=== PATIENT | male | born 1960 | race Caucasian/White ===

== ENCOUNTER 2022-01-13 12:10 | Emergency (ER) | payer SELFPAY ==
[2022-01-13 12:19] VITALS: BP 155/86; PULSE 80; RESP 16; TEMP 36.4; O2SAT 99
--- NOTE | 2022-01-13 13:14 | W.ED.GENAD ---
Discharge Plan Disposition Patient Disposition: HOME Condition: Stable Discharge Details Chief Complaint: Abd Prob Clinical Impression: Abdominal pain Primary Care Provider: None,None ED Provider: Shabbir James Home Meds and New Rx's Prescriptions: No Action No Known Home Meds 0RF Discharge Instructions Instructions: Abdominal Pain (ED) Additional Instructions: Laboratory values and CT imaging do not reveal any obvious emergent process. Please watch for new or worsening symptoms and return to the ER for any concerns. Gentle stretching as tolerated. [id number] Tylenol and/or Motrin as directed for discomfort. Cool and/or warm compresses every 2 hours for 20 minutes Medical Decision Making 61-year-old gentleman presents to the ER for right lower quadrant pain. He reports the pain began the day after falling backward onto his back. He did not strike his abdomen. It is difficult to correlate his abdominal pain with the fall. He then states later getting out of the truck he felt like he pulled something. While there does appear to be a musculoskeletal component, he does present with right lower quadrant pain. He is personally concerned about appendicitis. I also question if there may be abdominal wall hernia. I feel as though obtaining laboratory values, CT imaging is reasonable. Laboratory values are unremarkable for any obvious emergent process. CT imaging of the abdomen and pelvis is negative as well. Discussed benign work-up with patient. He is relieved. He has no additional questions or concerns and is comfortable discharge. Discussed the importance of gentle stretching, [id number] Tylenol and/or Motrin, and warm and/or cool compresses every 2 hours for 20 minutes. Standard discharge and return precautions were provided. This documentation was generated using [employer] dictation system, please disregard any oddities of phrase or misspellings. Medical Records Medical records reviewed: Yes I reviewed the patient's medical records. Imaging Data Radiologic Study: Attestation: I personally reviewed and interpreted this imaging study as follows: Imaging: CT Scan Radiologist's impression: Exam(s) CT ABDOMEN PELVIS W EXAM: CT ABDOMEN PELVIS W CLINICAL HISTORY: RLQ pain TECHNIQUE: COMPARISON: No exams were available for comparison FINDINGS: CT examination of the abdomen and pelvis was performed with bolus infusion of 100 cc of Omnipaque 350. Images obtained through the lung bases are unremarkable. The liver appears normal with no evidence of a focal mass. 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 No evidence of acute trauma. Incidental splenic calcifications noted consistent with healed granulomatous disease... Gallbladder and bile ducts are unremarkable. Pancreas is unremarkable in appearance. Adrenals appear normal bilaterally. Kidneys appear normal with no evidence of renal mass, hydronephrosis, or nephrolithiasis. The urinary bladder has a thickened wall which may indicate chronic bladder outlet obstruction versus cystitis, please correlate clinically. There is no evidence of abdominal or pelvic adenopathy. Abdominal aorta is of normal diameter and no abnormality is seen involving major visceral branches.. Appendix is normal. No evidence diverticulitis or bowel obstruction. Small bilateral fat containing inguinal hernias and small fat containing umbilical hernia noted.. Impression: No evidence of acute intra-abdominal process.. Lab Data Lab results reviewed: Yes I reviewed the patient's lab results. Labs: Laboratory Tests Range/Units 01/13/22 01/13/22 01/13/22 13:50 13:50 14:06 WBC (4.4-10.8) 10^3/uL 8.97 RBC (4.36-5.78) 10^6/uL 4.40 Hgb (13.5-17.5) g/dL 14.1 Hct (40.0-50.0) % 41.7 MCV (80-95) fL 94.8 MCH (27.0-33.0) pg 32.0 MCHC (32.0-36.0) % 33.8 RDW (11.8-14.1) % 12.9 Plt Count (130-400) 10^3/uL 305 MPV (8.0-11.0) fL 8.9 Immature Gran % 0.1 Neutrophils % 66.9 Lymphocytes % 20.5 Monocytes % 8.5 Eosinophils % 3.2 Basophils % 0.8 Nucleated RBC % % 0 Absolute Neutrophils (1.2-6.7) 10^3/uL 6.00 Absolute Lymphocytes (1.2-3.4) 10^3/uL 1.84 Absolute Monocytes (0.1-0.8) 10^3/uL 0.76 Absolute Eosinophils (0.0-0.7) 10^3/uL 0.29 Absolute Basophils (0.0-0.2) 10^3/uL 0.07 Sodium (136-145) mmol/L 138 Potassium (3.5-5.1) mmol/L 4.6 Chloride (98-107) mmol/L 103 Carbon Dioxide (21.0-32.0) mmol/L 25.5 Anion Gap (3-11) mmol/L 9.5 BUN (7-18) mg/dL 15 Creatinine (0.70-1.30) mg/dL 0.9 Estimated GFR/1.73 m2 (mL/min/1.73m2) >= 60.00 Glucose (74-106) mg/dL 96 Calcium (8.5-10.1) mg/dL 9.1 Total Bilirubin (0.2-1.0) mg/dL 0.6 AST (15-37) U/L 34 ALT (16-63) U/L 38 Alkaline Phosphatase (46-116) U/L 89 Total Protein (6.4-8.2) g/dL 7.8 Albumin (3.4-5.0) g/dL 4.1 Lipase (73-393) U/L 76 Urine Color (Yellow) Yellow Urine Clarity (Clear) Clear Urine pH (5-8) 6.5 Ur Specific New Site (1.005-1.025) >= 1.030 H Urine Protein (Negative) mg/dL Negative Urine Ketones (Negative) mg/dL Negative Urine Blood (Negative) Negative Urine Nitrite (Negative) Negative Urine Bilirubin (Negative) Negative Urine Urobilinogen (Up TO 0.2) EU/dL 0.2 Ur Leukocyte Esterase (Negative) Negative Urine Glucose (Negative) mg/dL Negative HPI General Mode of arrival: ambulatory. Date/Time Provider Initiated Documentation: 01/13/22 12:18. Limitations to Documentation: no limitations. Information obtained by: patient. HPI Narrative: This is a 61-year-old gentleman, denies significant past medical history, presenting to the ER for right lower quadrant pain. Patient states that about a week ago he fell backwards landing on his back but did not sustain any injuries. He did strike his head but denies any LOC or headache. He states the following day he noticed some pain in his right lower quadrant. Denies any fever, nausea, vomiting, diarrhea, constipation, dysuria or hematuria. The pain does not radiate to his back or down into his groin. He states that he felt like things were somewhat improving and then yesterday got out of his friend's truck awkwardly and felt like he could have pulled something. He is also concerned because this is the area of his appendix. He has not taken any [id number] medication for his symptoms. At rest he reports his pain is mild to moderate but with certain types of movement he wears ports his pain is moderate to severe. Related Data Home Medications Medication Instructions Recorded Confirmed Unknown [No Known Home Meds] 01/20/14 01/13/22 Allergies Allergy/AdvReac Type Severity Reaction Status Date / Time Penicillins Allergy Intermediate Swelling/Ed Unverified 01/13/22 12:26 sera General Stated Complaint: Abd Prob ORA: 3 Review of Systems Constitutional Constitutional: Denies fever(s) Cardiovascular Cardiovascular: Denies chest pain and Denies dyspnea Respiratory Respiratory: Denies cough and Denies dyspnea Gastrointestinal Gastrointestinal: Reports abdominal pain, Denies constipation, Denies diarrhea, Denies nausea and Denies vomiting Genitourinary Genitourinary: Denies hematuria, Denies genital pain, Denies dysuria and Denies testicular pain Musculoskeletal Musculoskeletal: Denies back pain Integumentary/Breasts Skin/Breast: Denies rash PFSH All Active Problems (Updated 01/13/22 @ 15:20 by JASON Casper) Abdominal pain (Acute) Social History Smoking/Tobacco Use Status: Former Tobacco Use Quit Date: 01/13/22 Smoking risk assessment performed?: Yes Alcohol Intake: current Alcohol Intake frequency: a few times a month Drug use: Never Substance use type: marijuana Exam Const General: cooperative, healthy appearing, comfortable and no acute distress Orientation: alert and awake [facility] Head: normal to inspection, normocephalic and atraumatic Mouth: moist mucous membranes Eyes General: appearance normal, both eyes and all related structures Conjunctivae: conjunctivae normal Neck Neck: normal visual inspection, trachea midline and supple Resp Effort & Inspection: normal respiratory effort and able to speak in complete sentences Auscultation: clear to auscultation bilaterally Cardio Rate: regular rate Rhythm: regular rhythm GI Inspection: normal to inspection Palpation: soft, not firm, no guarding, no pulsatile masses, tender in the RLQ; Negative for not at McBurney's point, Johnson's sign negative, obturator sign negative, psoas sign negative, with no rebound tenderness and Rovsing's sign negative and No Carnett's sign positive Auscultation: normal bowel sounds Back/Spine/Pelvis Back: No back tenderness Skin General skin exam: no rashes or lesions noted Neuro General: patient alert, patient awake, moves all extremities and no focal motor deficits Cognition: normal cognition Speech: speech normal Gait: normal gait Sensory Exam: no sensory deficits noted Psych Appearance: grossly normal Mental Status: mental status grossly normal Course Vital Signs Vital signs: Vital Signs Temperature 36.4 C L 01/13/22 12:19 Pulse 80 01/13/22 12:19 Respiratory Rate 16 01/13/22 12:19 Blood Pressure 155/86 H 01/13/22 12:19 Pulse Oximetry 99 01/13/22 12:19 Temperature 36.4 C L 01/13/22 12:19 Temperature Source Skin 01/13/22 12:19 Pulse 80 01/13/22 12:19 Respiratory Rate 16 01/13/22 12:19 Respiratory Effort 01/13/22 12:25 Blood Pressure 155/86 H 01/13/22 12:19 Blood Pressure Position Sitting 01/13/22 12:19 Pulse Oximetry 99 01/13/22 12:19 Oxygen Delivery Method Room Air 01/13/22 12:19 Oxygen Flow Rate 0 01/13/22 12:19 Pain Level 8 01/13/22 12:19 Comment 01/13/22 12:19 PAWSS Have you Been Recently Intoxicated or Drunk Within the Last 30 days?: No Have you Ever Experienced Previous Episodes of Alcohol Withdrawal?: No Have you ever Experienced Withdrawal Seizures?: No Have you ever Experienced Delirium Tremens(DT)s?: No Have you ever undergone Alcohol Rehabilitation Treatment (i.e, inpt ot outpatient treatment programs)?: No Have you ever Experienced Blackouts?: No Have you ever Combined Alcohol with other Downers within the last 90 days?: No Have you ever Combined Alcohol with any other Substance of Abuse during the last 90 days?: No Positive Blood Alcohol level on Presentation? [PCS.BAL]: No Evidence of Increased Autonomic Activity (i.e. HR>120, tremor, sweating, agitation, nausea)?: No Result: 0
[2022-01-13] MEDS: Omnipaque 350 MG/ML 100 ML BTL IJ (13:56)
[2022-01-13 13:57] LABS: Abs Immature Grans 0.01 10^3/uL (0.0-0.06); Absolute Basophil Count 0.07 10^3/uL (0.0-0.2); Absolute Eosinophil Count 0.29 10^3/uL (0.0-0.7); Absolute Lymphocyte Count 1.84 10^3/uL (1.2-3.4); Absolute Monocyte Count 0.76 10^3/uL (0.1-0.8); Basophils % 0.8; Eosinophils % 3.2; HCT 41.7 % (40.0-50.0); HGB 14.1 g/dL (13.5-17.5); Immature Grans % 0.1; Lymphocytes % 20.5; MCHC 33.8 % (32.0-36.0); MCV 94.8 fL (80-95); MPV 8.9 fL (8.0-11.0); Monocytes % 8.5; Neutrophils % 66.9; Nucleated RBC 0 %; Platelet Count 305 10^3/uL (130-400); RDW 12.9 % (11.8-14.1); RDW-SD 45.2 fL; WBC 8.97 10^3/uL (4.4-10.8)
[2022-01-13 14:16] LABS: ALT 38 U/L (16-63); AST 34 U/L (15-37); Albumin 4.1 g/dL (3.4-5.0); Alkaline Phosphatase 89 U/L (46-116); Anion Gap 9.5 mmol/L (3-11); BUN 15 mg/dL (7-18); Bilirubin, Total 0.6 mg/dL (0.2-1.0); CO2 25.5 mmol/L (21.0-32.0); CREATININE 0.9 mg/dL (0.70-1.30); Calcium 9.1 mg/dL (8.5-10.1); Chloride 103 mmol/L (98-107); Glucose 96 mg/dL (74-106); Lipase 76 U/L (73-393); Potassium 4.6 mmol/L (3.5-5.1); Sodium 138 mmol/L (136-145); Total Protein 7.8 g/dL (6.4-8.2)
[2022-01-13 14:21] LABS: Bilirubin Negative (Negative); Blood Negative (Negative); Clarity Clear (Clear); Glucose Negative (Negative); Ketones Negative (Negative); Leukocyte Esterase Negative (Negative); Nitrite Negative (Negative); Specific Gravity >= 1.030 (1.005-1.025); Urobilinogen 0.2 EU/dL (Up TO 0.2); pH 6.5 (5-8)
--- NOTE | 2022-01-13 14:52 | DI.CT_ITS ---
Exam(s) CT ABDOMEN PELVIS W EXAM: CT ABDOMEN PELVIS W CLINICAL HISTORY: RLQ pain TECHNIQUE: COMPARISON: No exams were available for comparison FINDINGS: CT examination of the abdomen and pelvis was performed with bolus infusion of 100 cc of Omnipaque 350 . Images obtained through the lung bases are unremarkable. The liver appears normal with no evidence of a focal mass. 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 No evidence of acute trauma. Incid ental splenic calcifications noted consistent with healed granulomatous disease... Gallbladder and bile ducts are unremarkable. Pancreas is unremarkable in appearance. Adrenals appear normal bilaterally. Kidneys appear normal with no evidence of renal mass, hydronephrosis, or nephrolithiasis. The urinar y bladder has a thickened wall which may indicate chronic bladder outlet obstruction versus cystitis, please correlate clinically. There is no evidence of abdominal or pelvic adenopathy. Abdominal aorta is of normal diameter and no abnormality is seen involving major visceral branches.. Appendix is normal. No evidence diverticulitis or bowel obstruction. Small bilateral fat containing inguinal hernias and small fat containing umbilical hernia noted.. Impression: No evidence of acute intra-abdominal process.. RADIATION DOSE DELIVERED: 765.35mGy.cm Total DLP 765.35mGy.cm Total DLP !Error CTDIvol DATA REPOSITORY: All CT scans at this facility are submitted to the National Radiology Data Registry (NRDR) Dose Index Registry (DIR) with the [employer] (ACR). RADIATION OPTIMIZATION: All CT scans at this facility use at least one of these dose optimization te chniques: automated exposure control; mA and/or kV adjustment per patient size (includes targeted exa ms where dose is matched to clinical indication); or iterative reconstruction.
[2022-01-13 15:15] VITALS: BP 158/93; PULSE 60; RESP 14; TEMP 35.9; O2SAT 99
== END 2022-01-13 16:05 | disposition home or self-care (01) ==
PROVIDERS: Emergency Provider Physician Assistant
DX: R10.31 Right lower quadrant pain (principal)
CPT/HCPCS: 36415; 80053; 83690; 99285; 74177; 81003; 85025; 99283; J3490

== ENCOUNTER 2024-05-08 05:54 | Outpatient (CLI) | payer MEDICAID, SELFPAY ==
[2024-05-08 12:53] LABS: Calculated LDL 97 mg/dL (<100); Cholesterol 205 mg/dL (<200); HDL Cholesterol 101 mg/dL (40-60); Triglyceride 39 mg/dL (<150)
[2024-05-08 13:02] LABS: Hemoglobin A1C 5.6 % (<5.7)
== END 2024-05-08 05:55 | disposition home or self-care (01) ==
LOC: LOS 05:54
PROVIDERS: PCP Nurse Practitioner Family; Visit Provider Nurse Practitioner Family
DX: Z13.220 Encounter for screening for lipoid disorders (principal); Z13.1 Encounter for screening for diabetes mellitus
CPT/HCPCS: 36415; 80061; 83036

== ENCOUNTER 2025-02-21 06:40 | Emergency (ER) | payer MEDICAID, SELFPAY ==
[2025-02-21 06:45] VITALS: BP 150/81; PULSE 61; RESP 12; TEMP 36.7; O2SAT 100
--- NOTE | 2025-02-21 06:45 | DI.CT_ITS ---
Exam(s) CT ABDOMEN PELVIS W EXAM: CT ABDOMEN PELVIS W CLINICAL HISTORY: abd pain TECHNIQUE: Imaging Protocol: Axial computed tomography images with coronal and sagittal reformatted images were created and reviewed. CONTRAST MATERIAL: Intravenous: Omnipaque 350 Contrast volume:75 mL Oral: No COMPARISON: CT CT ABDOMEN PELVIS W from 01/13/2022 FINDINGS: ABDOMEN: Lung Bases: No acute abnormality. There is a calcified granuloma in the right middle lobe. Liver: Normal density. No measurable mass. Portal, Superior Mesenteric, and Splenic Veins: Unremarkable. Gallbladder and Biliary Tract: No radiodense calculus or dilation. Pancreas: Normal density, no abnormal calcifications or inflammatory process. Spleen: Calcified granulomas are present. Adrenals: No masses seen. Kidneys: Normal size, contour and axis. No radiodense stones or obstructive uropathy. No masses seen. Abdominal Aorta: Abdominal portion non-dilated. Atherosclerotic calcification is present. Bowel: There is diverticulosis seen throughout the colon. There is focal pericolonic inflammatory ch anges in the mid sigmoid colon suggestive of acute diverticulitis. There is no evidence of bowel obs truction. Appendix is unremarkable. Peritoneal Cavity: There is a small amount of free fluid in the pelvis. No free air. Lymph Nodes: Within normal limits. Bones: Within normal limits for the patient's age. There is a mild right convex curvature of the lum bar spine. Soft Tissues: There is a small fat containing umbilical hernia. There are small fat containing ingui nal hernias bilaterally. PELVIS: Bladder: Symmetric distention, no gross wall thickening. Reproductive Organs: Unremarkable as visualized. Lymph Nodes: Within normal limits. Bones: Within normal limits for the patient's age. IMPRESSION: Findings consistent with acute diverticulitis involving the mid sigmoid colon. No abscess or free ai r. RADIATION DOSE DELIVERED: 393.89mGy.cm Total DLP DATA REPOSITORY: All CT scans at this facility are submitted to the National Radiology Data Registry (NRDR) Dose Index Registry (DIR) with the [employer] (ACR). RADIATION OPTIMIZATION: All CT scans at this facility use at least one of these dose optimization te chniques: automated exposure control; mA and/or kV adjustment per patient size (includes targeted exa ms where dose is matched to clinical indication); or iterative reconstruction.
--- NOTE | 2025-02-21 06:56 | ED.GENADUL_ITS ---
Discharge Plan Disposition Patient Disposition: Home Discharge Details Clinical Impression: Acute diverticulitis Primary Care Provider: Negrito Garner ED Provider: Sigifredo Castillo Home Meds and New Rx's Prescriptions: New ciprofloxacin HCl 500 mg tablet 500 mg PO BID Qty: 10 0RF metronidazole 500 mg tablet 500 mg PO Q8H 5 Days Qty: 15 0RF Discharge Instructions Instructions: Diverticulitis (DC) Additional Instructions: You are seen in the emergency department for your abdominal pain. Your CAT scan shows that you have diverticulitis which is an inflammation of your colon. If you develop nausea vomiting or fevers please return to the emergency department. Otherwise please follow-up with your primary care provider in the next 10 days as you will need a colonoscopy once your acute diverticulitis has resolved. HPI General Date/Time Provider Initiated Documentation: 02/21/25 06:53 . HPI Narrative: MDM This is overall very well-appearing normothermic and not tachycardic 64-year-old male with right lower quadrant tenderness concerning for possibility of appendicitis for which patient will undergo CT scan. Patient is not hypotensive tachycardic nor febrile so will defer empiric antibiotic treatment. My jain spicion is low for ureterolithiasis given no prior history. I considered ruptured AAA however the patient is not an extremis nor hypotensive and is only having abdominal pain when palpated. No chest pain to suggest ACS. No cough to suggest referred pain from pneumonia. No right upper quadrant tenderness to suggest acute cholecystitis. No left lower quadrant tenderness to suggest diverticulitis and no diarrhea. No rash to abdomen to suggest zoster. No pain out of proportion to suggest necrotizing soft tissue infection. Malignancy is on the differential based on the patient's age and his lack of colonoscopies. Patient has not been vomiting and is passing gas so I suspicion for SBO is low as he is not had any past surgical history. No chest pain to suggest ACS. 8:[address] scan showed acute uncomplicated diverticulitis for which patient will receive oral antibiotics. Given swelling and erythema with penicillin we will treat with metronidazole and ciprofloxacin. I advised patient to follow-up with primary care provider as he will need a colonoscopy once his acute diverticulitis has resolved. We discussed return indications including fevers inability tolerate p.o. or increasing pain. HPI This is a 64-year-old male arriving to the emergency department via private vehicle in setting of abdominal pain. Patient reports that 2 nights ago while watching TV he developed sharp pain in his lower abdomen. 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 He has had increased gas over the past several days. He has never had any surgeries to his abdomen. We sent in a colonoscopy. He denies ureterolithiasis fevers chills nausea dysuria frequency chest pain shortness of breath. He has had no prior history of similar symptoms. He does drink routinely 6-8 beers per day but denies history of withdrawal. He does go some days without drinking. He had no prior history of similar symptoms in the past. Exam General: Well-appearing in no acute distress speaking in complete sentences. Head: Normocephalic, atraumatic. Eye: Extraocular eye movements intact. No conjunctival injection. No scleral icterus. Ear, nose, mouth, throat: Grossly normal inspection. Normal voice, handling secretions normally. Neck: Trachea midline. Cardiovascular: Well-perfused distal extremities. Regular rate and rhythm Respiratory: Nonlabored respiration. Clear lungs bilaterally Gastrointestinal: Nondistended abdomen. Soft. Right lower quadrant tenderness. No rebound. No guarding. Musculoskeletal: No edema. Moving all 4 extremities spontaneously. Skin: Normal for age and race, grossly normal temperature and turgor. No acute rash. Neurologic: Alert and appropriate, no apparent acute deficits. Psychiatric: Mood and manner are appropriate. Grooming and personal hygiene are appropriate. Related Data Home Medications ?Medication ?Instructions ?Recorded ?Confirmed ciprofloxacin HCl 500 mg tablet 500 mg PO BID #10 tabs 02/21/25 metronidazole 500 mg tablet 500 mg PO Q8H 5 days #15 tabs 02/21/25 Previous Rx's ?Medication ?Instructions ?Recorded ciprofloxacin HCl 500 mg tablet 500 mg PO BID #10 tabs 02/21/25 metronidazole 500 mg tablet 500 mg PO Q8H 5 days #15 tabs 02/21/25 Allergies Allergy/AdvReac Type Severity Reaction Status Date / Time Penicillins Allergy Intermediate Swelling/Ed Verified 02/21/25 07:49 sera General Stated Complaint: Abd Prob ORA: 3 Course Vital Signs Vital signs: Vital Signs Temperature 36.7 C 02/21/25 06:45 Pulse 61 02/21/25 06:45 Respiratory Rate 12 02/21/25 06:45 Blood Pressure 150/81 H 02/21/25 06:45 Pulse Oximetry 100 02/21/25 06:45 Temperature 36.7 C 02/21/25 06:45 Temperature Source Oral 02/21/25 06:45 Pulse 61 02/21/25 06:45 Respiratory Rate 12 02/21/25 06:45 Blood Pressure 150/81 H 02/21/25 06:45 Blood Pressure Position Sitting 02/21/25 06:45 Pulse Oximetry 100 02/21/25 06:45 Oxygen Delivery Method Room Air 02/21/25 06:45 Oxygen Flow Rate 0 02/21/25 06:45 Pain Level 4 02/21/25 06:45 Medical Decision Making Quality:SDOH Health Related Social Needs: No Data to Display PFSH All Active Problems Acute diverticulitis (Acute) Bullous pemphigoid (Acute) Ganglion cyst (Acute) Alcohol abuse (Chronic) 6 beers daily Medical History Former smoker Started at 23. Quit in 2019. Social History (Updated 04/06/24 @ 10:58 by Jazmyn Simms) Smoking/Tobacco Use Status: Former Tobacco Use Quit Date: 01/13/22 Tobacco: How many years used: 30 Quit status: quit date established Second Hand Exposure: Yes Smoking risk assessment performed?: Yes Alcohol Intake: current Alcohol Intake frequency: 3 or more drinks per day Alcohol type: beer Drug use: Socially Substance use type: marijuana Adopted: No Caregiver/Support person: No Household members: none Communication Needs: None Education Level: high school Do you need help understanding health information?: Never Sexually active: Yes Do you think of yourself as: straight/heterosexual Current gender identity: male What is your relationship status?: How often do you talk on the phone with friends or family?: three or more times per week How often do you get together with friends or relatives?: three or more times per week Do you belong to any clubs or organized social groups?: no Panel score (0-1 are the most socially isolated patients): 1 What type of physical activity do you participate in: none Frequency: does not exercise Carlyn/Mandaeism: Non christian Special carlyn needs: No Seatbelt use: always Helmet use: Yes Helmet use: sometimes 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 Firearms in home: No Do you feel safe at home: Yes Do you feel safe in your relationship?: Yes Would you like helpful sources: No PAWSS Have you Been Recently Intoxicated or Drunk Within the Last 30 days?: No Have you Ever Experienced Previous Episodes of Alcohol Withdrawal?: No Have you ever Experienced Withdrawal Seizures?: No Have you ever Experienced Delirium Tremens(DT)s?: No Have you ever undergone Alcohol Rehabilitation Treatment (i.e, inpt ot ou tpatient treatment programs)?: No Have you ever Experienced Blackouts?: No Have you ever Combined Alcohol with other Downers within the last 90 days?: No Have you ever Combined Alcohol with any other Substance of Abuse during the last 90 days?: No Positive Blood Alcohol level on Presentation? [PCS.BAL]: No Evidence of Increased Autonomic Activity (i.e. HR>120, tremor, sweating, agitation, nausea)?: No Result: 0
[2025-02-21 07:33] LABS: Abs Immature Grans 0.04 10^3/uL (0.0-0.06); Absolute Basophil Count 0.08 10^3/uL (0.0-0.2); Absolute Lymphocyte Count 1.64 10^3/uL (1.2-3.4); Absolute Monocyte Count 1.02 10^3/uL (0.1-0.8); Absolute Neutrophil Count 7.87 10^3/uL (1.2-6.7); Basophils % 0.7 %; Eosinophils % 5.2 %; HCT 41.9 % (40.0-50.0); HGB 14.3 g/dL (13.5-17.5); Immature Grans % 0.4 %; Lymphocytes % 14.6 %; MCH 32.2 pg (27.0-33.0); MCHC 34.1 % (32.0-36.0); MCV 94 fL (80-95); MPV 9.3 fL (8.0-11.0); Monocytes % 9.1 %; Platelet Count 249 10^3/uL (130-400); RBC 4.44 10^6/uL (4.36-5.78); RDW 13.1 % (11.8-14.1); RDW-SD 45.5 fL; WBC 11.24 10^3/uL (4.4-10.8)
[2025-02-21 07:34] LABS: Absolute Eosinophil Count 0.58 10^3/uL (0.0-0.7)
[2025-02-21] MEDS: Normal Saline 500 ML IV (07:40)
[2025-02-21 07:51] LABS: ALT 29 U/L (16-63); AST 21 U/L (15-37); Albumin 3.8 g/dL (3.4-5.0); Alkaline Phosphatase 90 U/L (46-116); Anion Gap 8.9 mmol/L (3-11); BUN 15 mg/dL (7-18); Bilirubin, Total 1.2 mg/dL (0.2-1.0); CO2 27.1 mmol/L (21.0-32.0); Calcium 9.1 mg/dL (8.5-10.1); Chloride 103 mmol/L (98-107); Estimated GFR 84.05 (mL/min/1.73m2); Glucose 92 mg/dL (74-106); Lipase 25 U/L (<78); Potassium 4.4 mmol/L (3.5-5.1); Sodium 139 mmol/L (136-145); Total Protein 7.6 g/dL (6.4-8.2)
[2025-02-21 07:56] VITALS: BP 149/82; PULSE 56; RESP 16; O2SAT 100
[2025-02-21 07:58] VITALS: BP 149/82; PULSE 56; RESP 16; O2SAT 100
[2025-02-21] MEDS: Omnipaque 350 MG/ML 100 ML BTL IJ (08:13)
[2025-02-21] MEDS: Normal Saline - Diluent 50 ML VIAL IJ (08:13)
[2025-02-21 09:02] VITALS: BP 134/62; PULSE 56; RESP 16; O2SAT 100
[2025-02-21] MEDS: Ibuprofen 600 MG TAB PO (09:03)
[2025-02-21] MEDS: metroNIDAZOLE 500 MG TAB PO (09:03)
[2025-02-21] MEDS: Ciprofloxacin 500 MG TAB PO (09:03)
== END 2025-02-21 09:20 | disposition home or self-care (01) ==
PROVIDERS: Emergency Provider Emergency Medicine; PCP Nurse Practitioner Family
DX: K57.32 Diverticulitis of large intestine without perforation or abscess without bleeding (principal); Z87.891 Personal history of nicotine dependence
CPT/HCPCS: 36415; 80053; 83690; 96360; 99285; 74177; 85025; J3490

== ENCOUNTER 2025-05-14 02:39 | Outpatient (CLI) | payer MEDICAID, SELFPAY ==
--- NOTE | 2025-05-14 06:30 | DI.CTLCSR_ITS ---
Exam(s) CT CHEST LUNG CANCER SCREEN EXAM: CT CHEST LUNG CANCER SCREEN CLINICAL HISTORY: Screening for lung cancer,former smoker, z87.891 TECHNIQUE: Imaging Protocol: Axial computed tomography images with coronal and sagittal reformatted images were created and reviewed. Low dose screening protocol. COMPARISON: No exams were available for comparison FINDINGS: Tracheobronchial tree: No bronchiectasis or mucus plugging. Mediastinum and Yamel: No dominant adenopathy or fluid collection. Calcifications related to prior granulomatous disease. Pulmonary parenchyma: No consolidation or dominant measurable mass. No visible emphysematous changes. No significant interstitial changes. Granuloma in the lingula and medial right middle lobe. Lung Nodules: None. Pleura: No effusion. No pneumothorax. Heart: The heart is mildly dilated. Moderate coronary artery calcifications are seen. No pericardial effusion. Aorta: Thoracic aorta non-dilated. Upper abdomen: Unremarkable. Bones: Unremarkable for age. Soft Tissues: Unremarkable. IMPRESSION: No suspicious pulmonary nodules. Lung RADS Cat 1 - Negative: No nodules and definitely benign nodules Lung-RADS 1.0 CATEGORIES: Category 0 - Prior chest CT exam(s) being located for comparison. Category 1 - Annual screening in 12 months. No nodules or definitely benign nodules. Category 2 - Annual screening in 12 months. Benign appearance. Nodules with low likelihood of becoming active cancer. Category 3 - 6-month follow-up. Probably benign. Short-term follow-up suggested. Nodules with low likelihood of becoming active cancer. Category 4A - 3-month follow-up and CT/PET if >8 mm in size. Suspicious finding. Findings which require additional testing. Category 4B - Findings which require additional testing and tissue sampling. Category 4X - Category 3 or 4 nodules with additional features or imaging findings that increases the suspicion of malignancy. Modifier S- Potentially clinically significant findings (non lung cancer) RADIATION DOSE DELIVERED: !Error Total DLP DATA REPOSITORY: All CT scans at this facility are submitted to the National Radiology Data Registry (NRDR) Dose Index Registry (DIR) with the [employer] (ACR). RADIATION OPTIMIZATION: All CT scans at this facility use at least one of these dose optimization techniques: automated exposure control; mA and/or kV adjustment per patient size (includes targeted exams where dose is matched to clinical indication); or iterative reconstruction.
== END 2025-05-14 02:59 ==
LOC: DI 02:39
PROVIDERS: PCP Nurse Practitioner Family; Visit Provider Nurse Practitioner Family
DX: Z87.891 Personal history of nicotine dependence (principal); Z12.2 Encounter for screening for malignant neoplasm of respiratory organs
CPT/HCPCS: 71271

== ENCOUNTER 2025-09-14 07:32 | Day surgery (SDC) | payer MEDICAID, SELFPAY ==
[2025-09-14 07:56] VITALS: BP 132/90; PULSE 57; RESP 20; TEMP 36.2; O2SAT 100
[2025-09-14] MEDS: Lactated Ringers 1,000 ML 80 ML IV (08:09)
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
[2025-09-14 08:19] VITALS: BMI 28.0
--- NOTE | 2025-09-14 09:01 | BOWEL_PTH ---
PATIENT: Jesús Castaneda LOC: [facility] U#:[id number] AGE/SX: 64/M ROOM: RE09/14/[address]: Kaity Maurer MD : [id number] BED: DIS: 09/14/2025 SPEC #: [id number] RECD: 09/14/25 12:17 STATUS: NATALIE REBryson #: [id number] SHANEKA: 09/14/25 09:[address]: Kaity Maurer DEPT: Surgical Specimen RECD BY: Nikkie Costa ENTERED: 09/14/25 12:18 SP TYPE: Bowel OTHR DR: Negrito Garner, [employer] INST[employer]ER Tissues: 1 - BIOPSY BOWEL 2 - BIOPSY BOWEL Procedures: GROSS AND MICRO LEVEL 4 Comments: [id number]
--- NOTE | 2025-09-14 09:10 | W.COLOREPORT ---
Date of service: 09/14/25 Time of Service: 09:10 Colonoscopy Report Date of procedure: 09/14/25 Pre-op diagnosis general: Screening for colorectal cancer Post-op diagnosis procedure note: other (1. sigmoid polyp. 2. multiple rectum polyps. 3. sigmoid diverticulosis) Procedure: Colonoscopy with hot snare and cold forceps polypectomy Surgeon: Kaity Maurer Anesthesia Type: General:No Airway Estimated blood loss (mL): 1 Pathology: none sent (1. sigmoid polyp. 2. multiple rectum polyps) Complications: None Indications: screening for colorectal cancer Prep: Miralax/Dulcolax (Good) Procedure Description: Informed consent was obtained and the patient was taken to the procedure area. The patient was placed in left lateral decubitus position on the procedure table. Timeout was performed. Anesthesia was induced. A lubricated colonoscope was inserted through the anus and passed to the cecum. The cecum was identified by the ileocecal valve and the appendiceal orifice. The scope was then slowly withdrawn and the colonic and rectal mucosa examined. Sigmoid with 2 polyps - one pedunculated 8mm polyp excised with hot snare, sessile 5mm polyp excised with snare. Sigmoid polyps retrieved with polyp trap. Removal complete. Rectum with 4 sessile polyps, 2mm, 4mm, 4mm and 4mm. Excised with cold forceps and sent together as multiple rectum polyps. The scope was retroflexed in the anorectal junction examined. Uncomplicated internal hemorrhoids present. Assessment and plan: Sigmoid polyp multiple rectum polyps. Next colonoscopy due in 5 years. High fiber diet or fiber supplement for diverticulosis.
[2025-09-14 09:14] VITALS: BP 104/72; PULSE 60; RESP 14; TEMP 36.4; O2SAT 96
--- NOTE | 2025-09-14 09:16 | W.PM.DSUDISC ---
Date of service: 09/14/25 Discharge Plan Disposition Patient Disposition: Home Condition: Stable Discharge Details Attending Provider: Kaity Maurer Primary Care Provider: Negrito Garner Home Meds and New Rx's Prescriptions: Continued albuterol sulfate [Ventolin HFA] 90 mcg/actuation HFA aerosol inhaler 2 puff inhalation QID PRN (Reason: shortness of breath or wheezing) Qty: 8.5 0RF Patient Comments: Doesnt use this. Fiber Gummies 1.7 gram tablet,chewable 1.7 g PO DAILY Discharge Instructions Additional Instructions: 6 polyps total, all small in size. All removed. Next colonoscopy due in 5 years. Diverticulosis of the sigmoid colon noted, no diverticulitis (infection) present. Take a daily fiber supplement and eat a high fiber diet to prevent problems and progression of diverticulosis. Stand Alone Forms: Anesthesia Discharge Inst., Colonoscopy Post Instructions, [facility] ([facility]) Discharge Orders Discharge Orders: Discharge Order (Routine); Ordered 09/14/25 Ordered By: Kaity Maurer DS: Diagnosis Discharge Diagnosis (1) Encounter for screening colonoscopy: Status: Acute (2) Sigmoid polyp: Status: Acute (3) Rectal polyp: Status: Acute
--- NOTE | 2025-09-14 09:37 | W.ANESPOSTOP ---
Postoperative Evaluation Date, Time and Location Date Performed: 09/14/25 Time Performed: 09:14 Patient Location: Day [facility] Unit Vital Signs Most Recent Imported Vital Signs: Most Recent Vital Signs Temp Pulse Resp BP Pulse Ox 36.4 C L 60 14 104/72 96 09/14/25 09:14 09/14/25 09:14 09/14/25 09:14 09/14/25 09:14 09/14/25 09:14 Pain Score Most Recent Pain Score: Most Recent Pain Score Pain Level 0 09/14/25 09:14 Assessment Mental Status: Awake (Alert & Oriented to Patient Baseline) Airway and Respiratory Function: Patent airway with normal (patient baseline) respiratory exam Cardiovascular Function: Hemodynamically Stable Hydration Status: Adequately Hydrated Nausea & Vomiting: No Nausea or Vomiting Pain: Pt. Denies Any Pain Peripheral Nerve Block: Patient did not receive a nerve block
[2025-09-14 09:43] VITALS: BP 119/87; PULSE 50; RESP 14; TEMP 36.4; O2SAT 100
== END 2025-09-14 09:58 | disposition home or self-care (01) ==
LOC: SUR 07:32
PROVIDERS: PCP Nurse Practitioner Family; Visit Provider Surgery
PROC: 0DJD8ZZ Inspection of Lower Intestinal Tract, Via Natural or Artificial Opening Endoscopic (ICD-10-PCS; CPT 45378; principal; 2025-09-14 09:00)
DX: Z12.11 Encounter for screening for malignant neoplasm of colon (principal); D12.5 Benign neoplasm of sigmoid colon; K62.1 Rectal polyp
CPT/HCPCS: 45385; 45380; 88305; J2003; J2704

== ENCOUNTER 2025-10-08 13:53 | Emergency (ER) | payer MEDICARE, MEDICAID, SELFPAY ==
[2025-10-08 13:54] VITALS: BP 144/87; PULSE 60; RESP 18; TEMP 36.6; O2SAT 96
--- NOTE | 2025-10-08 14:00 | RT.EKG_ITS ---
APPROVED REPORT Exam: Resting ECG Reason for Exam: sob Patient Location: E HR:62 bpm ECG Measurements Heart Rate 62 AXIS VT 118 P 27 QRSd 94 QRS 68 QT 401 T 42 QTc 409 Conclusion Sinus rhythm...normal P axis, V-rate 60- 99 No STEMI
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
[2025-10-08 14:01] VITALS: BP 144/87; PULSE 60; RESP 18; TEMP 36.6; O2SAT 96
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
[2025-10-08] MEDS: Albuterol/Ipratropium 3 ML UPD VIAL UPD (14:29)
[2025-10-08] MEDS: Dexamethasone 4 MG TAB 12 MG PO (14:29)
[2025-10-08 14:45] VITALS: BP 146/77; PULSE 64; RESP 15; O2SAT 96
== END 2025-10-08 14:45 | disposition home or self-care (01) ==
LOC: ER 14:53
PROVIDERS: Emergency Provider General Practice; PCP Nurse Practitioner Family
DX: J20.9 Acute bronchitis, unspecified (principal)
CPT/HCPCS: 99283; 99284; 93005; 71046; 93010; J7620; J8540